=== PATIENT | male | born 1965 | race African-American/Black ===

== ENCOUNTER 2019-10-13 06:54 | Emergency (ER) | payer BC ==
[2019-10-13 07:16] VITALS: BP 120/76; PULSE 85; TEMP 98.1; BMI 35.7
[2019-10-13] MEDS ORDERED: ACETAMINOPHEN 325 MG TABLET (FP) PO ONE (07:41)
--- NOTE | 2019-10-13 07:46 | PDOC ---
History of Present Illness - General History Source: Patient Exam Limitations: No Limitations <Judy Maria - Last Filed: 10/13/19 09:05> <Nakul Matute - Last Filed: 10/13/19 14:46> - General Chief Complaint: Respiratory Stated Complaint: DIFFICULTY BREATHING Time Seen by Provider: 10/13/19 07:32 Past History - Travel Traveled outside of the country in the last 30 days: No Close contact w/someone who was outside of country & ill: No - Past Medical History Anemia: No Asthma: No Cancer: No Cardiac Disorders: No CVA: No COPD: No CHF: No Dementia: No Diabetes: No GI Disorders: Yes (HEARTBURN, COLON POLYPS) Disorders: No HTN: No Hypercholesterolemia: No Liver Disease: No Psychiatric Problems: No (history of anxiety currently not on meds) Seizures: No Thyroid Disease: No - Surgical History Abdominal Surgery: Yes (GASTRIC BYPASS) Appendectomy: No Cardiac Surgery: No Cholecystectomy: No Lung Surgery: No Neurologic Surgery: No Orthopedic Surgery: No - Psycho Social/Smoking Cessation Hx Smoking Status: No Smoking History: Never smoked Have you smoked in the past 12 months: No Number of Cigarettes Smoked Daily: 0 Hx Alcohol Use: No Drug/Substance Use Hx: No Substance Use Type: None <Judy Maria - Last Filed: 10/13/19 09:05> <Nakul Matute - Last Filed: 10/13/19 14:46> - Past Medical History Allergies/Adverse Reactions: Allergies Allergy/AdvReac Type Severity Reaction Status Date / Time No Known Allergies Allergy Verified 10/13/19 07:09 Home Medications: Ambulatory Orders Alprazolam 1 tab PO BID PRN 10/13/19 Oseltamivir Phosphate [Tamiflu] 75 mg PO BID #10 capsule 10/13/19 Paroxetine HCl [Paxil] 10 mg PO DAILY 10/13/19 Review of Systems - Review of Systems Able to Perform ROS?: Yes Comments:: 10/13/19 08:13 CONSTITUTIONAL: Present: Fever, chills, body aches Absent: diaphoresis, generalized weakness, malaise, loss of appetite HEENT: Present: rhinorrhea, nasal congestion, throat pain. Absent: difficulty swallowing, mouth swelling, ear pain, eye pain, visual Changes CARDIOVASCULAR: Absent: chest pain, loss of consciousness, palpitations, irregular heart rate, peripheral edema RESPIRATORY: Present: Cough Absent: shortness of breath, dyspnea with exertion, orthopnea, wheezing, stridor, hemoptysis GASTROINTESTINAL: Present: Nausea, vomiting and diarrhea Absent: abdominal pain, abdominal distension, constipation, melena, hematochezia SKIN: Absent: rash, itching, pallor NEUROLOGIC: Present: headache Absent: focal weakness or paresthesias, dizziness, unsteady gait, seizure, mental status changes, bladder or bowel incontinence Is the patient limited Citizen [place] proficient: No <Judy Maria - Last Filed: 10/13/19 09:05> *Physical Exam - Vital Signs Last Vital Signs Temp Pulse Resp BP Pulse Ox 98.1 F 85 18 120/76 100 10/13/19 07:13 10/13/19 07:13 10/13/19 07:13 10/13/19 07:13 10/13/19 07:13 - Physical Exam 10/13/19 08:13 GENERAL: Well developed, well nourished. Awake and alert. No acute distress. HEENT: Normocephalic, atraumatic. PERRLA, EOMI. No conjunctival pallor. Sclera are non- icteric. Moist mucous membranes. Oropharynx is with erythema/petechiae to the soft palate. NECK: Supple. Full ROM. No lymphadenopathy. CARDIOVASCULAR: Regular rate and rhythm. No murmurs, rubs, or gallops. Distal pulses are 2+ and symmetric. PULMONARY: No evidence of respiratory distress. Lungs clear to auscultation bilaterally. No wheezing, rales or rhonchi. ABDOMINAL: Soft. Non-tender. Non-distended. No rebound or guarding. No organomegaly. Normoactive bowel sounds. MUSCULOSKELETAL Normal range of motion at all joints. No bony deformities or tenderness. No CVA tenderness. EXTREMITIES: No cyanosis. No clubbing. No edema. No calf tenderness. SKIN: Warm and dry. Normal capillary refill. No rashes. No jaundice. NEUROLOGICAL: Alert, awake, appropriate. Cranial nerves 2-12 intact. No deficits to light touch and temperature in face, upper extremities and lower extremities. No motor deficits in the in face, upper extremities and lower extremities. Normoreflexic in the upper and lower extremities. Normal speech. Toes are down- going bilaterally. Gait is normal without ataxia. PSYCHIATRIC: Cooperative. Good eye contact. Appropriate mood and affect. <Judy Maria - Last Filed: 10/13/19 09:05> - Vital Signs Last Vital Signs Temp Pulse Resp BP Pulse Ox 98.1 F 85 18 120/76 100 10/13/19 07:13 10/13/19 07:13 10/13/19 07:13 10/13/19 07:13 10/13/19 07:13 <Nakul Matute - Last Filed: 10/13/19 14:46> ED Treatment Course - Medications Given in the ED: ED Medications Discontinued Medications Generic Name Dose Route Start Last Admin Trade Name Ethan PRN Reason Stop Dose Admin Acetaminophen 1,000 mg 10/13/19 07:41 10/13/19 07:52 Tylenol - PO 10/13/19 07:42 1,000 mg ONCE ONE Administration <Nakul Matute - Last Filed: 10/13/19 14:46> Medical Decision Making - Medical Decision Making 10/13/19 08:14 The patient is a 54-year-old male with past medical history of anxiety, who presents to the ER today for 3 days of flulike symptoms. He states that his symptoms started with diarrhea and stomach upset. Two days ago he developed chills, body aches, cough, headache and sore throat. 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 He did get a flu shot this year. Denies chest pain , shortness of breath, difficulty breathing, abdominal pain and urinary symptoms. A/P: Flulike illness On exam lungs are clear to auscultation with out wheezes rales or rhonchi. Abdomen is benign without concerning findings. Erythema/petechiae noted to the soft palate of the oropharynx. Chest x-ray obtained given the nausea and vomiting. No acute pathology noted. Flu and strep swabs sent given he works in a school. Reevaluate 10/13/19 09:03 Strep and flu are both negative. We will still treat with Tamiflu as symptoms are consistent with potential flu B infection. Discharge home with supportive therapy I discussed the physical exam findings, ancillary test results and final diagnoses with the patient. I answered all of the patient's questions. The patient was satisfied with the care received and felt comfortable with the discharge plan and treatment plan. The Patient agrees to follow up with the primary care physician/specialist within 24-72 hours. Return precautions were given. <Judy Maria - Last Filed: 10/13/19 09:05> - Medical Decision Making 10/13/19 14:46I reviewed the case of the mid-level practitioner and was available for consultation while in the emergency department <Nakul Matute - Last Filed: 10/13/19 14:46> Discharge - Discharge Information Problems reviewed: Yes - Admission No <Judy Maria - Last Filed: 10/13/19 09:05> <Nakul Matute - Last Filed: 10/13/19 14:46> - Discharge Information Clinical Impression/Diagnosis: Upper respiratory infection Qualifiers: URI type: unspecified viral URI Qualified Code(s): J06.9 - Acute upper respiratory infection, unspecified Condition: Stable Disposition: HOME - Additional Discharge Information Prescriptions: Oseltamivir Phosphate [Tamiflu] 75 mg PO BID #10 capsule - Follow up/Referral Referrals: Sridevi Murray MD [Primary Care Provider] - - Patient Discharge Instructions Additional Instructions: You were evaluated for your flulike symptoms today. Your chest x-ray, strep testing and flu testing were all negative. However given your symptoms we will treat you with Tamiflu as you are within treatment window. Please take the medication twice a day for 5 days. This medication will help to shorten the symptoms of the flu however will not treat the flu. Please drink plenty of fluids and get plenty of rest. Follow-up with your primary care doctor this week. Return to the ER for fevers, difficulty breathing, shortness of breath, chest pain, abdominal pain or if you have any changes in your symptoms. - Post Discharge Activity Work/Back to School Note: Back to Work
[2019-10-13] MEDS ORDERED: ACETAMINOPHEN 500 MG TABLET (FP) ONE (07:49)
== END 2019-10-13 09:15 | disposition home or self-care (01) ==
LOC: JER 06:54
DX: J06.9 Acute upper respiratory infection, unspecified (principal); F41.9 Anxiety disorder, unspecified; R12 Heartburn; Z98.84 Bariatric surgery status
CPT/HCPCS: 71046-TC-FY; 87070; 87804; 87880; 99284-25